=== PATIENT | female | born 1965 | race African-American/Black ===

== ENCOUNTER 2018-09-01 20:30 | Emergency (ER) | payer SELFPAY ==
--- NOTE | 2018-09-01 21:39 | Diagnostic Imaging Report ---
DONNIE KEENAN (INTELLIGENCE AGENT) - ER [facility] [address] [address] Report Submission Date: Sep 01, 2018 9:14:47 PM CDT Patient Study Name: MARYANNE CAMARENA Date: Sep 01, 2018 8:53:54 PM CDT Modality Type: DX Gender: F Description: SHOULDER 2 VIEWS OR MORE : 69 Institution: [facility] Physician: DONNIE KEENNA (FRANCES) - ER Right shoulder two views History: Pain for 2 months Findings: Early distal clavicle osteophyte formation is present. There is no evidence of fracture or dislocation. Glenohumeral alignment is normal. Electronically signed on Sep 01, 2018 9:14:47 PM CDT by: Karan BEST
--- NOTE | 2018-09-01 21:40 | Diagnostic Imaging Report ---
DONNIE KEENAN (DRAMATIC AGENT) - ER [facility] [address] [address] Report Submission Date: Sep 01, 2018 9:14:14 PM CDT Patient Study Name: MARYANNE CAMARENA Date: Sep 01, 2018 8:53:54 PM CDT Modality Type: DX Gender: F Description: CLAVICLE COMPLETE : 69 Institution: [facility] Physician: DONNIE KEENAN (DRAMATIC AGENT) - ER Right clavicle two views History: 2 months of pain Findings: Early right acromioclavicular osteoarthritic spurring is present. There is no fracture or dislocation. Electronically signed on Sep 01, 2018 9:14:14 PM CDT by: Karan BEST
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
[2018-09-01] MEDS: NALBUPHINE HCL 10 MG/1 ML IM ONE (22:06)
[2018-09-01] MEDS: predniSONE 20 MG TABLET PO ONE (22:06)
[2018-09-01 22:12] VITALS: BP 138/78
== END 2018-09-01 22:08 | disposition home or self-care (01) ==
LOC: ED 20:30
DX: M24.811 Other specific joint derangements of right shoulder, not elsewhere classified (principal)
CPT/HCPCS: 73000; 73030; 96372; 99283; 99284; J2300

== ENCOUNTER 2019-01-24 19:28 | Emergency (ER) | payer MEDICARE, OTHER ==
--- NOTE | 2019-01-24 19:34 | ED Physician Documentation ---
Shoulder Injury/Pain - HISTORIAN Historian: patient - HPI Stated Complaint: right neck/shoulder pain x 6 months Chief Complaint: Shoulder Injury/ Pain Onset: other (6 months to 8 months ) Severity: severe (10/10) Pain: persistent Context: denies: fall, direct blow, dislocated raising arm Further Comments: yes (She has had shoulder/neck pain x 6-8 months and she has no relief. She is seeing ortho but does not feel this is helping enough. She has had xray and MRI and no recent injury since. Pain is 10/10 now she has no new injury or new symptoms. She is seeing ortho next week. She has tramadol at home this is helping some .) - ROS CONST: no problems - PAST HX Past History: diabetes Type 2 Immunizations: UTD Allergies/Adverse Reactions: Allergies Allergy/AdvReac Type Severity Reaction Status Date / Time Iodinated Contrast Media AdvReac Rash Verified 01/24/19 19:46 [Iodinated Contrast- Oral and IV Dye] Home Medications: Ambulatory Orders Medication Instructions Recorded Metformin HCl 1,000 mg PO BID 09/01/18 Rivaroxaban [Xarelto] 1 tab PO DAILY 09/01/18 amLODIPine BESYLATE [Norvasc] 2 tab PO DAILY 09/01/18 Sertraline HCl [Zoloft] 50 mg PO DAILY 11/22/18 Tramadol HCl [Ultram] 1 tab PO PRN 01/24/19 - SOCIAL HX Smoking History: non-smoker Alcohol Use: none Drug Use: none - FAMILY HX Family History: none - VITAL SIGNS Vital Signs: Vital Signs Temp Pulse Resp BP Pulse Ox 98.6 F 88 16 141/96 97 01/24/19 19:39 01/24/19 19:39 01/24/19 19:39 01/24/19 19:39 01/24/19 19:39 - REVIEWED ASSESSMENT Nursing Assessment Reviewed: Yes Vitals Reviewed: Yes Progress - Progress Progress: 2030: Discussed she needs to follow up with ortho and I will refer to pain management DG ED Results Lab/Radiology - Orders Orders: ED Orders Category Date Time Status Ketorolac Tromethamine [Toradol] Med 01/24/19 19:54 Discontinued 60 mg IM NOW ONE methylPREDNISolone ACETATE [DEPO-Medrol] Med 01/24/19 19:54 Discontinued 80 mg IM NOW ONE Shoulder Injury Physical Exam - Physical Exam General Appearance: no acute distress, alert Shoulder: no acute distress, soft-tissue tenderness, bony tenderness, limited ROM, limited internal rotation, limited external rotation. No: clavicular deformity Upper Extremity: no injury below shoulder Neuro: sensation nml, motor nml Vascular: no vascular compromise Skin: warm/dry, normal color Head/ENT: nml inspection Respiratory: chest non-tender CVS: reg rate & rhythm, heart sounds normal, equal pulses Abdomen: soft, no distension Discharge Clincal Impression: Internal derangement of right shoulder Referrals: Primary Doctor,No [Primary Care Provider] - 2 Days Comments: 1. Continue current meds 2. Call ortho in am 3. Referral to pain management 4. Return to ER for any increasing concerns Condition: Stable Disposition: 01 HOME, SELF-CARE Decision to Admit: NO Date of Decison to Admit: 01/24/19 Decision Time: 20:37
[2019-01-24] MEDS: methylPREDNISolone ACETATE 80 MG/ML VIAL IM ONE (20:16)
[2019-01-24] MEDS: KETOROLAC TROMETHAMINE 60 MG/2 ML VIAL IM ONE (20:16)
[2019-01-24 20:44] VITALS: BP 138/78
== END 2019-01-24 20:43 | disposition home or self-care (01) ==
LOC: ED 19:28
DX: M24.811 Other specific joint derangements of right shoulder, not elsewhere classified (principal)
CPT/HCPCS: 96372; 99282; 99283; J1040; J1885

== ENCOUNTER 2019-02-13 10:04 | Outpatient (CLI) | payer MEDICARE, OTHER ==
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
== END 2019-02-13 11:04 ==
LOC: OUT 10:04
PROVIDERS: ATTEND Nurse Practitioner Adult Health
DX: M25.511 Pain in right shoulder (principal); M54.2 Cervicalgia
CPT/HCPCS: 99203; G0463

== ENCOUNTER 2019-04-12 03:58 | Emergency (ER) | payer MEDICARE, OTHER ==
[2019-04-12] MEDS ORDERED: KETOROLAC TROMETHAMINE 60 MG/2 ML VIAL IM ONE ×2 (04:03→04:29)
--- NOTE | 2019-04-12 04:22 | ED Physician Documentation ---
Neck Injury/Pain - HISTORIAN Historian: patient - HPI Stated Complaint: neck and shoulder pain Chief Complaint: Neck Pain Additional Information: Patient presents to ED with neck pain and right shoulder pain. She has appointment with pain clinic on 04/17/19. Onset: days ago (3) Duration: continues in ED Other Injuries: neck Severity: severe Quality: burning, sharp, dull, similar- prior back pain Associated Symptoms: denies: fever Exacerbated By: movement of neck Relieved By: nothing - ROS NEURO/PSYCH: denies: difficulty with speech EYES/ENT: denies: problems with vision CVS/RESP: denies: chest pain, shortness of breath CONST: no problems GI/: denies: nausea, vomiting MS/SKIN/LYMPH: none - PAST HX Past History: neck pain Surgeries/Procedures: denies: neck surgery Allergies/Adverse Reactions: Allergies Allergy/AdvReac Type Severity Reaction Status Date / Time Iodinated Contrast Media AdvReac Rash Verified 04/12/19 04:16 [Iodinated Contrast- Oral and IV Dye] Home Medications: Ambulatory Orders Medication Instructions Recorded Metformin HCl 1,000 mg PO BID 09/01/18 Rivaroxaban [Xarelto] 1 tab PO DAILY 09/01/18 amLODIPine BESYLATE [Norvasc] 2 tab PO DAILY 09/01/18 Sertraline HCl [Zoloft] 50 mg PO DAILY 11/22/18 - SOCIAL HX Smoking History: non-smoker Alcohol Use: none Drug Use: none - FAMILY HX Family History: none - VITAL SIGNS Vital Signs: Vital Signs Temp Pulse Resp BP Pulse Ox 98.1 F 78 18 168/88 98 04/12/19 04:10 04/12/19 04:10 04/12/19 04:10 04/12/19 04:10 04/12/19 04:10 - REVIEWED ASSESSMENT Nursing Assessment Reviewed: Yes Vitals Reviewed: Yes ED Results Lab/Radiology - Orders Orders: ED Orders Category Date Time Status Ketorolac Tromethamine [Toradol] Med 04/12/19 04:03 Discontinued 60 mg IM .STK-MED ONE Neck Injury/Pain - Physical Exam General Appearance: no acute distress, alert EENT: nml ENT inspection Neck: nml inspection, muscle spasm (bilateral upper trapezius) Nexus Criteria: Nexus criteria neg. No: midline tenderness, distracting injury Back: non-tender, painless ROM. No: vertebral point-tendernes Respiratory: chest non-tender, breath sounds nml CVS: heart sounds nml Abdomen: non-tender Skin: warm/dry, normal color Extremities: non-tender, normal range of motion, no evidence of injury Neuro/Psych: oriented x3, mood/affect nml Discharge Clincal Impression: Neck pain on right side Right shoulder pain Qualifiers: Chronicity: chronic Qualified Code(s): M25.511 - Pain in right shoulder; G89.29 - Other chronic pain Referrals: Jimena Peck FNP [Primary Care Provider] - 2 Days Additional Instructions: 1. Baclofen every 12 hours as needed for muscle spasm/pain 2. Tramadol every 6 hours as needed for pain 3. Apply ice/heat to affected area as needed for comfort 4. Apply icy hot, biofreeze, aspercreme, or bengay as needed for comfort 5. Follow up with Pain management on 04/17/19 as already scheduled 6. Follow up with PCP within 1 week 7. Return to ER for new or worsening symptoms Condition: Stable Disposition: 01 HOME, SELF-CARE Decision to Admit: NO Date of Decison to Admit: 04/12/19 Decision Time: 04:29
[2019-04-12] MEDS ORDERED: ORPHENADRINE CITRATE 60 MG/2 ML ML IM ONE (04:29)
[2019-04-12 04:39] VITALS: BP 138/78
== END 2019-04-12 04:38 | disposition home or self-care (01) ==
LOC: ED 03:58
DX: M25.511 Pain in right shoulder (principal); M54.2 Cervicalgia
CPT/HCPCS: 96372; 99284; J1885; J2360

== ENCOUNTER 2019-05-01 12:56 | Outpatient (CLI) | payer MEDICARE, OTHER ==
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
== END 2019-05-01 13:26 ==
LOC: OUT 12:56
PROVIDERS: ATTEND Nurse Practitioner Adult Health
DX: M47.892 Other spondylosis, cervical region (principal); M25.511 Pain in right shoulder

== ENCOUNTER 2019-05-16 06:34 | Emergency (ER) | payer MEDICARE, OTHER ==
[2019-05-16 06:46] VITALS: BP 150/84
--- NOTE | 2019-05-16 06:46 | ED Physician Documentation ---
General Adult - HISTORIAN Historian: patient - HPI Chief Complaint: Cough/ Upper Respiratory Additional Information: Patient states that gladys has had 6 day history of not feeling well. Started like allergy symptoms, has been having some congestion, cough - nonproductive at this time. Having coughing fits, worse with laying down. Yesterday had some nausea/vomiting nd diarrhea. Has been using an inhaler more often. Timing: still present, worse - ROS CONST: fever (low grade), chills (mild) - PAST HX Past History: hypertension, other (s/p pe felt to be related to cancer, history of endometrial cancer) Other History: diabetes Type 2 Immunizations: influenza Allergies/Adverse Reactions: Allergies Allergy/AdvReac Type Severity Reaction Status Date / Time Iodinated Contrast Media AdvReac Rash Verified 05/16/19 06:45 [Iodinated Contrast- Oral and IV Dye] Home Medications: Ambulatory Orders Medication Instructions Recorded Metformin HCl 1,000 mg PO BID 09/01/18 Rivaroxaban [Xarelto] 1 tab PO DAILY 09/01/18 amLODIPine BESYLATE [Norvasc] 2 tab PO DAILY 09/01/18 Sertraline HCl [Zoloft] 50 mg PO DAILY 11/22/18 Gabapentin 100 mg PO BID 04/12/19 Linagliptin [Tradjenta] 5 mg PO DAILY 04/12/19 Pravastatin Sodium [Pravachol] 20 mg PO DAILY 04/12/19 Azithromycin [Zithromax] 250 mg PO DIRECTED #6 tablet 05/16/19 Benzonatate [Tessalon Perle] 100 mg PO BID PRN #20 capsule 05/16/19 Diclofenac Sodium 75 mg PO BID 05/16/19 Methylprednisolone [Medrol] 4 mg PO DIRECTED #1 tab.ds.pk 05/16/19 Tizanidine HCl 1 tab PO TID 05/16/19 - SOCIAL HX Smoking History: less than 1 pack/day Alcohol Use: occasionally Drug Use: none - FAMILY HX Family History: No - VITAL SIGNS Vital Signs: Vital Signs Temp Pulse Resp BP Pulse Ox 138/78 04/12/19 04:38 - REVIEWED ASSESSMENTS Nursing Assessment Reviewed: Yes Vitals Reviewed: Yes General Adult Physical Exam - PHYSICAL EXAM GENERAL APPEARANCE: mild distress EENT: ENT inspection normal, no signs of dehydration. No: pharyngeal erythema, exudate NECK: normal inspection, thyroid normal, supple RESPIRATORY: no resp distress, chest non-tender, breath sounds normal. No: wheezes, rhonchi CVS: reg rate & rhythm, heart sounds normal, equal pulses, no murmur ABDOMEN: soft, no organomegaly, normal bowel sounds SKIN: warm/dry EXTREMITIES: non-tender, normal range of motion NEURO: oriented X3, mood/affect nml, cognition normal Discharge Clincal Impression: Acute bronchitis Referrals: Jimena Peck FNP [Primary Care Provider] - 2 Days Additional Instructions: Drink a lot of fluids. Take medication as directed. The steroids will cause your blood sugar to go higher. If your symptoms do not improve or get worse in the next week to see your primary care provider. Condition: Stable Disposition: 01 HOME, SELF-CARE Decision to Admit: NO Date of Decison to Admit: 05/16/19 Decision Time: 07:42
[2019-05-16 07:18] LABS: BASOPHILS % 0.6 % (0.0-1.5)
[2019-05-16 07:26] LABS: eGFR (Non-African) > 60
--- NOTE | 2019-05-16 07:26 | Diagnostic Imaging Report ---
PATIENT MR#: [id number] PATIENT PATIENT NAME: MARYANNE CAMARENA DATE OF : 1965 REFERRING PHYSICIAN: Pako Mcclelland EXAM DATE: 05/16/2019 ACCESSION NUMBER: [id number] EXAM DESCRIPTION: CHEST 2VIEW Chest PA and lateral views Clinical history: Cough and congestion for 5 days There is discoid atelectasis in the left lung base. Small linear infiltrate in the lung bases. No effusions or pneumothorax. Normal bony thorax. Normal heart shadow and mediastinum. Impression: Small bibasilar linear infiltrate and discoid atelectasis in the left lung base . Read by: Dr. Pako Corbett Transcribed by: Transcribed Date: Electronically signed by: Dr. Pako Corbett Date signed: 05/16/2019 7:25:08 AM
== END 2019-05-16 07:45 | disposition home or self-care (01) ==
LOC: ED 06:34
DX: J20.9 Acute bronchitis, unspecified (principal); F17.210 Nicotine dependence, cigarettes, uncomplicated
CPT/HCPCS: 80053; 85025; 87400; 99282; 99283